=== PATIENT | male | born 1985 | race Caucasian/White ===

== ENCOUNTER 2019-12-14 19:19 | Emergency (ER) | payer MEDICAID, SELFPAY ==
[2019-12-14 19:30] VITALS: BP 137/96; PULSE 93; RESP 20; TEMP 37.5; O2SAT 100
--- NOTE | 2019-12-14 19:33 | ED.HA ---
HPI - Headache General Chief Complaint: Headache Stated Complaint: L/side of face pn/[place] Time Seen by Provider: 12/14/19 19:33 Source: patient and RN notes reviewed History of Present Illness HPI Narrative: Patient is a 34-year-old male that presents the urgent care with complaints of left-sided facial pain. Patient states the pain has been ongoing since Saturday and is causing him to have a headache. Patient has been using ibuprofen without much relief. Denies any recent dental work. No other acute complaints. No acute distress noted. Patient read the plan of care. Related Data Allergies Allergy/AdvReac Type Severity Reaction Status Date / Time No Known Allergies Allergy Verified 12/14/19 19:35 Review of Systems Review of Systems: Narrative: CONSTITUTIONAL: Denies fever, chills, or sweats. EYES: Denies visual changes, redness, or discharge. ENT: Denies rhinorrhea, congestion, sore throat, or otalgia. CARDIOVASCULAR: Denies chest pain, palpitations, or edema. RESPIRATORY: Denies cough or dyspnea. GASTROINTESTINAL: Denies abdominal pain, nausea, vomiting, or diarrhea. GENITOURINARY: Denies dysuria or hematuria. SKIN: Denies rash or itching. MUSCULOSKELETAL: Denies back pain, joint pain, or myalgia. NEUROLOGIC: Denies headache, numbness, or weakness. All other systems reviewed are negative, except as documented in HPI. PMFSH Comments At the time of my signature, I reviewed and agree with the nursing past medical, surgical, social, and family history. There is no relevant family history pertinent to the patient complaint. Exam Narrative: Exam Narrative: GENERAL: This is a well-nourished, well-developed patient, in no apparent distress. HEAD: normocephalic, atraumatic. EYES: PERRL. Sclera clear/white. Vision is grossly intact. EARS: External ears normal NOSE: External nose normal with no obvious nasal discharge THROAT: Mucous membranes moist, posterior pharynx clear. DENTAL: Notable eruption of tooth #17 without abscess NECK: Neck supple, non-tender without lymphadenopathy, masses or thyromegaly. CARDIOVASCULAR: Regular rate and rhythm without murmurs, gallops, or rubs. RESPIRATORY: Clear to auscultation. Breath sounds equal bilaterally. No wheezes, rales, or rhonchi. SKIN: warm, intact with no suspicious lesions or rash, good texture and turgor. NEURO: awake, alert, and oriented to person, place and time. There were no obvious focal neurologic abnormalities. EXTREMITIES: No clubbing, cyanosis, or edema. Course Vital Signs Vital signs: Vital Signs Temperature 99.5 F 12/14/19 19:30 Pulse Rate 93 12/14/19 19:30 Respiratory Rate 12/14/19 19:30 Blood Pressure 137/96 H 12/14/19 19:30 Pulse Oximetry 100 12/14/19 19:30 Temperature 99.5 F 12/14/19 19:30 Pulse Rate 93 12/14/19 19:30 Respiratory Rate 12/14/19 19:30 Blood Pressure 137/96 H 12/14/19 19:30 Pulse Oximetry 100 12/14/19 19:30 Reviewed-patient is informed that they may have pre-hypertension or hypertension based on a blood pressure reading in the department. I recommend the patient call the primary care provider listed on their discharge instructions or a physician of their choice this week to arrange follow-up for further evaluation of possible pre-hypertension or hypertension. MDM - Headache MDM Narrative Medical decision making narrative: Advised the patient to use tramadol as directed. Make sure to eat and drink with medication. Be sure to practice good oral hygiene to refrain from the tooth becoming infected. Swish twice a day with [id number] Prevention mouthwash. Follow-up with dentist/oral surgeon within 2 to 5 days for reevaluation. Differential Diagnosis Differential diagnosis: Likely migraine, tension headache, headache and sinusitis Critical Care Time Critical Care Time Critical Care Time: No Discharge Plan Discharge Clinical Impression: Tooth eruption Patient Disposition: Home, Self-Care [place]
--- NOTE | 2019-12-14 19:41 | PC.NURSE ---
Gum slightly red on the left lower jaw by wisdom tooth
== END 2019-12-14 19:47 | disposition home or self-care (01) ==
PROVIDERS: Emergency Provider Nurse Practitioner Family
DX: K00.6 Disturbances in tooth eruption (principal)
CPT/HCPCS: 99203; G0463